=== PATIENT | male | born 1940 | race Caucasian/White ===

== ENCOUNTER 2017-07-16 13:20 | Outpatient (CLI) | payer MEDICARE, OTHER ==
[2017-07-16 18:05] LABS: INR 2.5 (0.8-1.2); PT - PROTHROMBIN TIME 28.2 secs (9.9-12.6)
== END 2017-07-16 13:21 | disposition home or self-care (01) ==
LOC: LAB.F 13:20
PROVIDERS: ATTEND Internal Medicine Cardiovascular Disease
DX: Z79.01 Long term (current) use of anticoagulants (principal)
CPT/HCPCS: 36415; 85610